=== PATIENT | male | born 1985 | race Caucasian/White ===

== ENCOUNTER 2024-07-06 11:23 | Emergency (ER) | payer OTHER, SELFPAY ==
[2024-07-06 11:39] VITALS: BP 144/73; PULSE 99; RESP 16; TEMP 36.6; O2SAT 97
--- NOTE | 2024-07-06 12:04 | ED.SKABFB ---
HPI - Skin/Abscess/Foreign Bdy General Chief complaint: Skin/Abscess/Foreign Body Stated complaint: Rash on Hands and Legs Time Seen by Provider: 07/06/24 12:04 Source: patient Mode of arrival: ambulatory Limitations: no limitations History of Present Illness HPI narrative: 38-year-old male presented for complaint of an itchy red rash to both hands and both legs. Onset 4 days. Applying cortisone cream and taking daily zyrtec. Denies lip, tongue, or throat swelling, shortness of breath or wheezing. Denies changes to soap, detergent, lotion, meds, or any other exposures. No one else in the house or any contacts with similar symptoms. Related Data Home Medications ?Medication ?Instructions ?Recorded ?Confirmed ?Last Taken ?Type cetirizine 10 mg tablet (Zyrtec) 10 mg PO DAILY PRN 05/04/22 05/04/23 Unknown History Allergies Allergy/AdvReac Type Severity Reaction Status Date / Time latex Allergy Mild Rash Verified 07/06/24 11:58 Review of Systems Review of Systems: CONSTITUTIONAL: Denies body aches, fever, chills, or sweats. EYES: Denies visual changes, redness, or discharge. ENT: Denies rhinorrhea, congestion CARDIOVASCULAR: Denies chest pain, palpitations, or edema. RESPIRATORY: Denies cough or dyspnea. GASTROINTESTINAL: Denies abdominal pain, nausea, vomiting, or diarrhea. SKIN: reports rash MUSCULOSKELETAL: Denies back pain, joint pain, or myalgia. NEUROLOGIC: Denies headache, numbness, tingling, or weakness. [facility] Past Medical History Medical History Hypertriglyceridemia Asthma Hypothyroidism Surgical History Surgical History History of ankle surgery right History of right inguinal hernia repair History of surgery on wrist right History of sinus surgery Social History Social History Smoking status: Never smoker Second hand tobacco smoke exposure: No Alcohol intake: current Substance use: never Substance use type: does not use Lack of Transportation: No Lack of Food: Never True Current Housing: I Have Housing Concerned About Future Housing: No Difficulty Paying Gas/Electric Bills: No Difficulty Paying for Meds: No Currently Unemployed: No Difficulty w/ Childcare or Family Care: No Living arrangements: with family Occupation/Education: occupation Gender identity (if verbalized by the patient): Male Sexual Orientation (if Verbalized by the Patient): Straight or Heterosexual Comments At time of signature, I have reviewed and agree with nursing past medical, surgical, social and family history unless otherwise noted. Please see nursing chart for further information. There is no relevant family history pertinent to the presenting complaint Exam Narrative: GENERAL: Well-appearing ENT: Mucous membranes moist. Oropharynx without edema, erythema or lesions. NECK: Supple. No lymphadenopathy CHEST: Clear to auscultation. HEART: Regular rate and rhythm. SKIN: Warm, dry. Erythematous papules noted to dorsal surface of bilateral hands as well as bilateral lower legs and right ear. No vesicles, no induration or purulence. NEURO: Alert and oriented x3. Course Course Emergency Course: Patient is aware of diagnosis, understands and agrees to treatment plan. Anticipatory guidance given. Patient agrees to follow-up as directed and is aware of reasons to seek care at the emergency department. Portions of this record may have been created with voice recognition software Level of Care: Express Care Visit Vital Signs Vital signs: Vital Signs Temperature 97.8 F 07/06/24 11:39 Pulse Rate 99 07/06/24 11:39 Respiratory Rate 16 07/06/24 11:39 Blood Pressure 144/73 H 07/06/24 11:39 Pulse Oximetry 97 07/06/24 11:39 Temperature 97.8 F 07/06/24 11:39 Pulse Rate 99 07/06/24 11:39 Respiratory Rate 16 07/06/24 11:39 Blood Pressure 144/73 H 07/06/24 11:39 Pulse Oximetry 97 07/06/24 11:39 Reviewed MDM - Skin/Abscess/Foreign Bdy MDM Narrative Medical decision making narrative: Discussed physical exam findings. Advised supportive measures and signs/symptoms to go to the ER. Pt is appropriate for outpt treatment and f/u. Instructed patient to go to nearest ER immediately for any worsening symptoms including but not limited to: fever, spreading rash, pain, sore throat, headache, dizziness, chest pain, trouble breathing, or any symptoms concerning to the patient. Differential Diagnosis Differential diagnosis: Likely abscess of skin or subcutaneous tissue, urticaria, herpes zoster, cellulitis and contact dermatitis Discharge Plan Discharge Clinical Impression: Dermatitis Patient Disposition: Home, Self-Care Condition: Stable Instructions: Antibiotic Form, Dermatitis (ED) Additional Instructions: Take steroids and Pepcid as directed. Benadryl or Zyrtec as needed for itching Cool compresses to the sites of itching, avoid hot water. Avoid scratching to reduce the risk of infection Follow up with your primary care provider as needed in 1 week Go to the ER for worsening symptoms or concerns (lip, tongue, throat swelling/itching, trouble breathing etc) Patient Language: Arabic Prescriptions: New famotidine [Pepcid] 40 mg tablet 40 mg PO DAILY Qty: 10 0RF methylprednisolone [Medrol (Stan)] 4 mg tablets,dose pack See Rx Instructions .ROUTE .COMPLEX Qty: 21 0RF Rx Instructions: orally per package directions No Action cetirizine [Zyrtec] 10 mg tablet 10 mg PO DAILY PRN levothyroxine 50 mcg capsule 50 mcg PO DAILY Qty: 90 3RF fluticasone propion-salmeterol [Advair Diskus] 250-50 mcg/dose blister with device 1 inh inhalation BID Qty: 180 3RF fenofibrate nanocrystallized 145 mg tablet 145 mg PO DAILY Qty: 30 0RF albuterol sulfate 90 mcg/actuation HFA aerosol inhaler See Rx Instructions .ROUTE .COMPLEX Qty: 6.7 2RF Dose Instruction: INHALE 1 PUFF BY MOUTH EVERY 4 HOURS NEEDED FOR SHORTNESS OF BREATH OR WHEEZING Rx Instructions: INHALE 1 PUFF BY MOUTH EVERY 4 HOURS NEEDED FOR SHORTNESS OF BREATH OR WHEEZING levothyroxine 50 mcg tablet 50 mcg PO DAILY Qty: 90 0RF Rx Instructions: Per [employer] ([employer]) PharmDestiney Beltran pt has been receiving tablet never given capsules Follow-up/Referrals: Paola Wright PA-C [Primary Care Provider] - Time of Disposition: 12:13
--- OUTSIDE RECORDS SUMMARY | 2024-07-13 09:12 | XMS_ITS ---
Author Organization [facility] Address [address] [place] [address] Care Team Providers Care Template Layout Worker Name Role Phone Kyle, Sarah Primary Care Provider Unavailab le [place] Cheema Unavailable [phone] ZZ-Migration, Provider Unavailable Unavailab le REASON FOR VISIT [facility] Conversion Encounter Medications Medication SIG (Take, Route, Frequency, Duration) Notes Start Date End Date Status PROVENTIL (ALBUTEROL) HFA 90 MCG/INH 2 PUFF(S) INHALED EVERY 6 HOURS *Please review for potential replacement for e-prescription and drug interaction check* Active Flonase Allergy Relief 50 MCG/ACT 2 spray(s) intranasally (avoid nasal septum) bid Active methylPREDNISolone 4 MG as directed oral ly Qday for 6 days 08/14/2022 Active ZyrTEC Allergy 10 MG 1 tab(s) orally once a day Active Levothyroxine Sodium 50 MCG 1 tab(s) orally once a day for 30 day(s) Active Advair Diskus 250 MCG-50 MCG 1 INH INHALED QDAY *Please review and pick correct strength-formulat ion from [facility] options. 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 ; Moderate persistent asthma, uncomplicated J45.40 and Allergic rhinitis due to animal (cat) (dog) hair and dander J30.81 Assessments Encounter Date Diagnosis (ICD Code) Assessment Notes Treatment Notes Treatment Clinical Notes Section Notes 12/22/2023 Polyp of nasal cavity (ICD-10 - J33.0) 12/22/2023 Moderate persistent asthma, uncomplicated (ICD-10 - J45.40) 12/22/2023 Allergic rhinitis due to animal (cat) (dog) hair and dander (ICD-10 - J30.81) Plan Of Treatment Medication Medication Name Sig Start Date Stop Date Notes PROVENTIL (ALBUTEROL) HFA 90 MCG/INH 2 PUFF(S) INHALED EVERY 6 HOURS *Please review for potential replacement for e-prescription and drug interaction check* Flonase Allergy Relief 50 MCG/ACT 2 spray(s) intranasally (avoid nasal septum) bid methylPREDNISolone 4 MG as directed oral ly Qday for 6 days 08/14/2022 Advair Diskus 250 MCG-50 MCG 1 INH INHALED QDAY *Please revie w and pick correct strength-formulati on from [facility] [employer] options. If intended option is not shown, discontinue and re-order from Quick Search* Cetirizine HCl 10 MG 1 tab(s) orally onc e a day 08/14/2022 Progress Notes * Nick VASQUEZDOB:1985 (38 yo M)Acc No.[id number]:12/22/2023 Patient:?Nick VASQUEZ Provider:?Provider Migration :1985???Age:38 Y???Sex:Male Boris e:12/22/2023 Address:[address] [place] [address] [id number] Pcp:Rowena Wright Subjective: * Chief Complaints: * ???1. [facility] Con version Encounter. * Medical History:? * Medications:?Taking ZyrTEC A llergy 10 MG Tablet 1 tab(s) orally once a day , Taking Levothyroxine Sodium 50 MCG Tablet 1 tab(s) orally once a day Objective: * Vitals:? Assessment: * Assessment: 1.?Moderate persistent asthm a, uncomplicated - J45.40 (Primary)???2.?Polyp of nasal cavity - J33.0???3.?Allergic rhinitis due to animal (cat) (dog) hair and dander - J30.81??? Plan: * Treatment: 2.?Polyp of nasal cavity? Continue Flonase Allergy Relief Suspension, 50 MCG/ACT, 2 spray(s), intranasally (avoid nasal septum), bid;?Start methylPREDNISolone Tablet Therapy Pack, 4 MG, as directed, orally, Qday, 6 days, 1, Refills 0.?? 3.?Allergic rhinitis due to animal (cat) (dog) hair and dander? Continue Cetirizine HCl Tablet, 10 MG, 1 tab(s), orally, once a day.?? * Billing Information: * Visit Code:? * Procedure Codes:? * Electronic signature of Mikey RODRIGUEZ-Migration on 07/13/2024 at 09:11 AM [employer] Sign off status: Pending * Provider:?Provider Migration Date:?12/21 Generated for Terri barth/David/Bharat on:?07/13/2024 09:11 AM [employer]
--- OUTSIDE RECORDS SUMMARY | 2024-07-13 09:12 | XMS_ITS | Patient Health Record ---
Author Organization [facility] Address [address] [place] [address] Care Team Providers Care Remediation Project Engineer Name Role Phone Kyle, Sarah Primary Care Provider Unavailab le [place] Cheema Unavailable [phone] ZZ-Migration, Provider Unavailable Unavailab le Allergies No Known Allergies Reason For Referral No Information Medications Medication SIG (Take, Route, Frequency, Duration) Notes Start Date End Date Status ADVAIR DISKUS 250 mcg-50 mcg 1 INH inhaled Qday Active ZYRTEC 10 mg 1 tab(s) orally once a day Active ZyrTEC Allergy 10 MG 1 tab(s) orally once a day Active Levothyroxine Sodium 50 MCG 1 tab(s) orally once a day for 30 day(s) Active Advair Diskus 250 MCG-50 MCG 1 INH INHALED QDAY *Please review and pick correct strength-formulat ion from [email or web address] options. If intended option is not shown, discontinue and re-order from Quick Search* Active PROVENTIL (ALBUTEROL) HFA 90 MCG/INH 2 PUFF(S) INHALED EVERY 6 HOURS *Please review for potential replacement for e-prescription and drug interaction check* Active Flonase Allergy Relief 50 MCG/ACT 2 spray(s) intranasally (avoid nasal septum) bid Active LEVOTHYROXINE 50 mcg (0.05 mg) 1 tab(s) orally once a day for 30 day(s) Active methylPREDNISolone 4 MG as directed oral ly Qday for 6 days 08/14/2022 Active FLONASE 0.05 mg/inh 2 spray(s) intranasally (avoid nasal septum) bid Active Cetirizine HCl 10 MG 1 tab(s) orally once a day 08/14/2022 Active METHYLPREDNISOLONE DOSE PACK 4 mg as directed orally Qday for 6 days 08/14/2022 Active CETIRIZINE HYDROCHLORIDE 10 mg 1 tab(s) orally once a day 08/14/2022 Active Immunizations Vaccine Route Administration Date Status Comme nts DTaP < 7 y/o Unknown 01/08/2017 Administered Portal Inf ormation Flucelvax Unknown 04/21/2022 Administered Influenza Unknown 04/17/2022 Administered Portal Infor mation Problems Problem Type SNOMED Code ICD Code Onset Dates Problem Status W/U Status Risk Notes Problem Hypothyroidism (77313696) Hypothyroidism, unspecified (E03.9) Active confirmed Problem Chronic allergic conjunctivitis (25798912) Other chronic allergic conjunctivitis (H10.45) Active confirmed Problem Allergic rhinitis caused by pollen (disorder) (02289634) Allergic rhinitis due to pollen (J30.1) Active confirmed Problem Allergic rhinitis (20578044) Other allergic rhinitis (J30.89) Active confirmed Problem Chronic rhinitis (93875766) Chronic rhinitis (J31.0) Active confirmed Problem Polyp of nasal cavity (450537799) Polyp of nasal cavity (J33.0) Active confirmed Problem Uncomplicated mild persistent asthma (792252608) Mild persistent asthma, uncomplicated (J45.30) Active confirmed Problem Uncomplicated moderate persistent asthma (227692160) Moderate persistent asthma, uncomplicated (J45.40) Active confirmed Problem Uncomplicated severe persistent asthma (425027058) Severe persistent asthma, uncomplicated (J45.50) Active confirmed Problem Allergic rhinitis caused by animal hair and dander (068292068353890) Allergic rhinitis due to animal (cat) (dog) hair and dander (J30.81) Active confirmed Encounters Encounter Location Date Provider Diagnosis [facility] [address] [place] [id number] 12/22/2023 Provider Vanessa Polyp of nasal cavity J33.0 ; Moderate [...] dander (ICD-10 - J30.81) Plan Of Treatment No Information Insurance Providers Payer Name Payer Address Payer Phone Subscriber Number Group Number Insured Name Patient Relationship to Insured Coverage Start Date Coverage End Date [facility] [address] [place] [address] [id number] Nick Cotton Self - patient is the insured Medical (General) History Medical History History ICD Code Hypothyroidism, unspecified E03.9 Surgical History Surgery Date(Month/Year) Broken R Wrist 11/29/2001 R Ankle Ligament Repair 04/15/2004 Sinus Surgery 09/25/2016 Inguinal Hernia 08/18/2020
== END 2024-07-06 12:14 | disposition home or self-care (01) ==
PROVIDERS: Emergency Provider Nurse Practitioner Family; PCP Physician Assistant Medical
DX: L30.9 Dermatitis, unspecified (principal); J45.909 Unspecified asthma, uncomplicated; E03.9 Hypothyroidism, unspecified; E78.1 Pure hyperglyceridemia
CPT/HCPCS: 99213; G0463

== ENCOUNTER 2024-10-03 08:12 | Emergency (ER) | payer OTHER, SELFPAY ==
--- NOTE | 2024-10-03 08:13 | ED_ITS ---
HPI - URI/Sore Throat General Chief Complaint: Upper Respiratory Infection Stated Complaint: sore throat Time Seen by Provider: 10/03/24 08:13 Source: patient Mode of arrival: ambulatory Limitations: no limitations History of Present Illness HPI Narrative: Nick is a 38-year-old male patient presenting to the clinic today with complaints of sore throat x4 days. He reports some nasal drainage going up back with so feeling worn down but no other URI symptoms. Denies any fever. 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 MD elicited complaint: sore throat Related Data Home Medications ?Medication ?Instructions ?Recorded ?Confirmed ?Last Taken ?Type cetirizine 10 mg tablet (Zyrtec) 10 mg PO DAILY PRN 05/04/22 08/25/24 Unknown History Allergies Allergy/AdvReac Type Severity Reaction Status Date / Time latex Allergy Mild Rash Verified 10/03/24 08:23 Review of Systems Review of Systems: Pertinent positives per HPI. Patient denies any fever, chills, rash, headache, visual changes, dizziness, cough, shortness of breath, chest pain, palpitations, nausea, vomiting, diarrhea, constipation, abdominal pain, or any urinary issues. [facility] Past Medical History Medical History Hypertriglyceridemia Asthma Hypothyroidism Surgical History Surgical History History of ankle surgery right History of right inguinal hernia repair History of surgery on wrist right History of sinus surgery Social History Social History Social History: 08/18/24 Very confident with medical forms Smoking status: Never smoker Second hand tobacco smoke exposure: No Alcohol intake: current Substance use: never Substance use type: does not use Do You Feel Safe in your Home?: Yes Lack of Transportation: No Lack of Food: Never True Current Housing: I Have Housing Concerned About Future Housing: No Difficulty Paying Gas/Electric Bills: No Difficulty Paying for Meds: No Currently Unemployed: No Education: Bachelor's Degree Difficulty w/ Childcare or Family Care: No Living arrangements: with family Occupation/Education: occupation Gender identity (if verbalized by the patient): Male Sexual Orientation (if Verbalized by the Patient): Straight or Heterosexual Comments At the time of my signature, I reviewed and agree with the nursing past medical, surgical, social, and family history. There is no relevant family history pertinent to the patient complaint. Exam Narrative: General: Well-developed, well nourished, in no apparent distress Head: Normocephalic, atraumatic Eyes: Pupils equally round and reactive to light bilaterally, EOM intact, sclera and conjunctive clear, no discharge, lids normal Ears: TMs intact and clear, ear canals clear, no drainage, grossly hearing normal. Nose: Nares patent, no discharge, no inflammation, no sinus tenderness. Mouth: Oral pharynx red without lesions or masses, good dentition, MMM. Neck: Supple, trachea midline, no enlargement of anterior or posterior cervical nodes, no thyroid masses or goiter palpable. Cardio: Regular rate and rhythm, s1 and s2 normal, no murmur appreciated. Resp: Clear to auscultation bilaterally, no rhonchi, rales, wheezing or rubs Course Course Emergency Course: Portions of this record may have been created with voice recognition software. Level of Care: Express Care Visit Vital Signs Vital signs: Vital signs reviewed MDM - URI/Sore Throat MDM Narrative Medical decision making narrative: At the time of visit patient is resting comfortably on the exam table. Patient appears to be nontoxic. Labs: COVID testing was negative. Strep test was positive Plan: Patient has strep pharyngitis. Prescription for amoxicillin was sent to the pharmacy. Supportive measures were discussed with the patient and they voiced understanding discharge instructions and agrees to treatment plan. Return precautions reviewed Differential Diagnosis Differential diagnosis: Likely upper respiratory infection, otitis media, sinusitis, viral infection, bronchitis, influenza, pharyngitis and other (COVID) Discharge Plan Discharge Clinical Impression: Acute streptococcal pharyngitis Patient Disposition: Home, Self-Care Condition: Stable Instructions: Antibiotic Form, Strep Throat (ED) Additional Instructions: Take prescription medications only as prescribed-amoxicillin COVID testing was negative. Strep test was positive. Change your toothbrush in 24 hours after initiation of the antibiotics Increase fluids and stay well hydrated Tylenol/motrin for pain/fever Flonase and OTC antihistamines as directed Vicks vapor rub to open sinuses Sinus rinses for congestion Cepacol spray, cough drops, throat lozenges, warm tea with honey/lemon, gargle salt water to soothe throat BRAT diet for diarrhea Clear liquids x 24 hours then advance as tolerated for nausea/vomiting Go to the ED if you develop a worsening in your condition- high fever not controlled by Tylenol or Motrin, dehydration, weakness, lethargy, shortness of breath, or chest pain. Follow up with your PCP in 3-5 days if symptoms persist. Patient Language: [place] Citizen Prescriptions: New amoxicillin 875 mg tablet 875 mg PO Q12H 10 Days Qty: 20 0RF No Action famotidine [Pepcid] 40 mg tablet 40 mg PO DAILY Qty: 10 0RF cetirizine [Zyrtec] 10 mg tablet 10 mg PO DAILY PRN fluticasone propion-salmeterol [Advair Diskus] 250-50 mcg/dose blister with device 1 inh inhalation BID Qty: 180 3RF albuterol sulfate 90 mcg/actuation HFA aerosol inhaler See Rx Instructions .ROUTE .COMPLEX Qty: 6.7 2RF Dose Instruction: INHALE 1 PUFF BY MOUTH EVERY 4 HOURS NEEDED FOR SHORTNESS OF BREATH OR WHEEZING Rx Instructions: INHALE 1 PUFF BY MOUTH EVERY 4 HOURS NEEDED FOR SHORTNESS OF BREATH OR WHEEZING levothyroxine 50 mcg tablet 50 mcg PO DAILY Qty: 90 1RF Rx Instructions: Per Fawn Beltran pt has been receiving tablet never given capsules Follow-up/Referrals: Paola Wright PA-C [Primary Care Provider] - Stand Alone Forms: Work/School Release IP Time of Disposition: 08:47 Quality NIHSS Nursing Documentation ED NIHSS nursing documentation: reviewed/agree
--- OUTSIDE RECORDS SUMMARY | 2024-10-03 08:18 | XMS_ITS | Clinical Summary ---
Author Organization [facility] Address [facility] [place] [address] Care Team Providers Care Analytics Associate Name Role Phone Paola Wright PA-C Primary Care Provider [phone] Social History Tobacco Use Types Packs/Day Years Used Date Smoking Tobacco: Never Assessed Sex and Gender Information Value Date Recorded Sex Assigned at Not on file Legal Sex Male 3:05 PM CDT Gender Identity Not on file Sexual Orientation Not on file Plan of Treatment Health Maintenance Due Date Last Done Comments Annual Physical 10/05/1986 Hepatitis C 10/05/2001 DTaP, Tdap and Td Vaccines (1 - Tdap) 10/05/2002 Hepatitis B Vaccines (1 of 3 - 19+ 3-dose series) 10/05/2002 COVID-19 Vaccine ( season) 2024 05/19/2022, 06/01/2021, 11/13/2020, Additional history exists Influenza Adult (#1) 2024 04/21/2022, 04/19/2022, 04/11/2018 HPV Vaccines Aged Out No longer eligi ble based on patient's age to complete this topic Meningococcal B Vaccine Aged Out No l onger eligible based on patient's age to complete this topic Meningococcal Vaccine Aged Out No zhanna dorys eligible based on patient's age to complete this topic Pneumococcal Vaccine: Pediatrics (0 to 5 Years) and At-Risk Patients (6 to 64 Years) Aged Out No longer eligible based on patient's age to complete this topic RSV Immunizations Under 20 Months Aged Out No longer eligible based on patient's age to complete this topic Insurance Care Teams Analytics Associate Relationship Specialty Start Date End Date Paola Wright PA-C [address] [place], [place] [id number] [place] [address] PCP - General PHYSICIAN COMPONENT OVERHAUL OPERATOR 09/21/22
--- OUTSIDE RECORDS SUMMARY | 2024-10-03 08:18 | XMS_ITS | Clinical Summary ---
Author Organization [facility] [place] [address] [place] [address] Care Team Providers Care Roll On Man Name Role Phone Unavailable Primary Care Provider Unavailabl e Social History Tobacco Use Types Packs/Day Years Used Date Smoking Tobacco: Never Assessed Sex and Gender Information Value Date Recorded Sex Assigned at Not on file Legal Sex Male 8:36 AM PST Gender Identity Not on file Sexual Orientation Not on file Plan of Treatment Not on file
--- OUTSIDE RECORDS SUMMARY | 2024-10-03 08:19 | XMS_ITS ---
Author Organization [facility] Address [address] [place] [address] Care Team Providers Care Health Workers Name Role Phone Kyle, Sarah Primary Care Provider Unavailab le [place] Cheema Unavailable [phone] [employer]-Migration, Provider Unavailable Unavailab le REASON FOR VISIT [facility] Encounter Medications Medication SIG (Take, [...] review and pick correct strength-formulat ion from [facility] options. If intended option is not shown, discontinue and re-order from Quick Search* Active Cetirizine HCl 10 MG 1 tab(s) orally once a day 08/14/2022 Active Encounters Encounter Location Date Provider Diagnosis [facility] [address] [place] [address] 12/22/2023 Provider ZZ-Migration Polyp of nasal cavity [...] w and pick correct strength-formulati on from [employer] options. If intended option is not shown, discontinue and re-order from Quick Search* Cetirizine HCl 10 MG 1 tab(s) orally onc e a day 08/14/2022 Progress Notes * Nick VASQUEZDOB:1985 (38 yo M)Acc No.[id number]:12/22/2023 Patient: Nick JURADO Provider: Vince Lee :1985 A ge:38 Y S ex:Male Date:12/22/2023 Address:[address] [place] [address] [id number] Pcp:Rowena Wright Subjective: * Chief Complaints: * 1 . [facility] Encounter. * Medical History: * Medications: T aking ZyrTEC Allergy 10 MG Tablet 1 tab(s) orally once a day , Taking Levothyroxine Sodium 50 MCG Tablet 1 tab(s) orally once a day Objective: * Vitals: Assessment: * Assessment: 1. M oderate persistent asthma, uncomplicated - J45.40 (Primary) 2 . 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 A llergic rhinitis due to animal (cat) (dog) hair and dander - J30.81 Plan: * Treatment: 2. P olyp of nasal cavity Continue Flonase Allergy Relief Suspension, 50 MCG/ACT, 2 spray(s), intranasally (avoid nasal septum), bid; S tart methylPREDNISolone Tablet Therapy Pack, 4 MG, as directed, orally, Qday, 6 days, 1, Refills 0. 3. A llergic rhinitis due to animal (cat) (dog) hair and dander Continue Cetirizine HCl Tablet, 10 MG, 1 tab(s), orally, once a day. * Billing Information: * Visit Code: * Procedure Codes: * Electronic signature of Mikey RODRIGUEZ-Migration on 10/03/2024 at 08:18 AM CDT Sign off status: Pending * Provider: Vince tobin Migration Date: 0 12/22/2023 Generated for Terri barth/David/Bharat on: 0 10/03/2024 08:18 AM CDT
--- OUTSIDE RECORDS SUMMARY | 2024-10-03 08:19 | XMS_ITS | Clinical Summary ---
Author Organization [facility] Address [address] [place] [address] Care Team Providers Care Data Processing Specialist Name Role Phone Unavailable Primary Care Provider Unavailabl e Source Comments [facility] My Ad Box,non-owned Affiliates and Associated Physician Practices is amultiple site organization consisting of ambulatory clinics and hospital sitesin [place], [place], [place] and [place]. This disclosure is being madepursuant to the Care Everywhere program and may not contain all information available regarding this patient. Last updated 18.[facility] My [facility] Social History Tobacco Use Types Packs/Day Years Used Date Smoking Tobacco: Never Alcohol Use Standard Drinks/Week Comments No 0 (1 standard drink = 0.6 oz pur e alcohol) Sex and Gender Information Value Date Recorded Sex Assigned at Not on file Gender Identity Not on file Sexual Orientation Not on file Last Filed Vital Signs Vital Sign Reading Time Taken Comments Blood Pressure 127/83 10/05/2013 6:21 PM CDT Pulse 116 10/05/2013 6:00 PM CDT Temperature 36.3 C (97.4 F) 10/05/2013 4:14 PM CDT Respiratory Rate 27 10/05/2013 6:00 PM CDT Oxygen Saturation 96% 10/05/2013 6:00 PM CDT Inhaled Oxygen Concentration - - Weight - - Height - - Body Mass Index - - Plan of Treatment Health Maintenance Due Date Last Done Comments LIPID TESTING 1985 HIV SCREENING 10/05/1998 HEPATITIS C SCREENING 10/01/2001 DTAP/TDAP/TD VACCINES (1 - Tdap) 10/05/2002 HEPATITIS B VACCINE (1 of 3 - 19+ 3-dose series) 10/05/2002 COVID-19 VACCINE ( - 2023-2 5 season) 2024 INFLUENZA VACCINE (#1) 2024 DEPRESSION SCREENING 07/09/2024 ZOSTER VACCINE (1 of 2) 10/05/2033 HIB VACCINE Aged Out No longer eligi ble based on patient's age to complete this topic HPV VACCINE Aged Out No longer eligi ble based on patient's age to complete this topic MENINGOCOCCAL (Group B) VACC INE SHARED DECISION-MAKING Aged Out No longer eligibl e based on patient's age to complete this topic MENINGOCOCCAL GROUPS A/C/Y/W VACCINE Aged Out No longer eligible b ased on patient's age to complete this topic PNEUMOCOCCAL VACCINE Aged Out No long er eligible based on patient's age to complete this topic
--- OUTSIDE RECORDS SUMMARY | 2024-10-03 08:19 | XMS_ITS | Encounter Summary ---
Author Organization [facility] [place] [address] [place] [address] Care Team Providers Care Spares Scheduler Name Role Phone Unavailable Primary Care Provider Unavailabl e Prior Encounters Date Type Department Care Team Description 07/28/2019 Converted 13x Documents [facility] [address] , [address] [place] [phone] <No scans attached> 07/28/2019 Converted CPS Chart Documents [facility] [address] , [facility] [address] [place] [address] <No scans attached> Plan of Treatment Not on file Procedures Procedure Name Priority Date/Time Associated Diagnosis Comments OFFICE VISIT FOR OBSERVATION (DURING REGULARLY SCHEDULED HOURS) - NO OTHER SERVICES PERFORMED Routine 03/13/2013 1:00 AM MDT OCCLUSAL GUARD DELIVERY Routine 01/04/20 13 1:00 AM MDT ORAL HYGIENE INSTRUCTIONS Routine 2012 1:00 AM MDT 1 FM IRR W/GROSS SCALE Routine 3 1:00 AM MDT TOPICAL APPLICATION OF FLUORIDE VARNISH Routine 12/27/2012 1:00 AM MDT PROPHYLAXIS - ADULT Routine 12/27/2012 1 :00 AM MDT OCCLUSAL GUARD SOFT APPLIANCE, FULL ARCH Routine 12/24/2012 1:00 AM MDT COMPREHENSIVE ORAL EVALUATION - NEW OR ESTABLISHED PATIENT Routine 12/24/2012 1:00 AM MDT PANORAMIC RADIOGRAPHIC IMAGE Routine 12/24/2012 1:00 AM MDT INTRAORAL - COMPREHENSIVE SERIES OF RADIOGRAPHIC IMAGES Routine 12/24/2012 1:00 AM MDT INTRAORAL PHOTO Routine 12/24/2012 1:00 AM MDT INTRAORAL PHOTO Routine 12/24/2012 1:00 AM MDT INTRAORAL PHOTO Routine 12/24/2012 1:00 AM MDT INTRAORAL PHOTO Routine 12/24/2012 1:00 AM MDT INTRAORAL PHOTO Routine 12/24/2012 1:00 AM MDT INTRAORAL PHOTO Routine 12/24/2012 1:00 AM MDT INTRAORAL PHOTO Routine 12/24/2012 1:00 AM MDT INTRAORAL PHOTO Routine 12/24/2012 1:00 AM MDT INTRAORAL PHOTO Routine 12/24/2012 1:00 AM MDT INTRAORAL PHOTO Routine 12/24/2012 1:00 AM MDT 30 MOD COMPOSITE FILLING Routine 013 1:00 AM MDT 31 MO COMPOSITE FILLING Routine 12/25/19 13 1:00 AM MDT 29 DO COMPOSITE FILLING Routine 12/25/19 13 1:00 AM MDT Visit Diagnoses Not on file
[2024-10-03 08:22] VITALS: BP 128/82; PULSE 99; RESP 16; TEMP 36.4; O2SAT 99
--- OUTSIDE RECORDS SUMMARY | 2024-10-03 08:22 | XMS_ITS | Patient Health Record ---
Author Organization [facility] Address [address] [place] [address] Care Team Providers Care Resource Conservationist Name Role Phone Kyle, Sarah Primary Care Provider Unavailab le [place] Cheema Unavailable [phone] [employer]-M[employer], Provider Unavailable Unavailab le Allergies No [...] review and pick correct strength-formulat ion from [employer] options. If intended option is not shown, [...] Status W/U Status Risk Notes Problem Hypothyroidism (12787955) Hypothyroidism, unspecified (E03.9) Active confirmed Problem Chronic allergic conjunctivitis (78444305) Other chronic allergic conjunctivitis (H10.45) Active confirmed Problem Allergic rhinitis caused by pollen (disorder) (34776132) Allergic rhinitis due to pollen (J30.1) Active confirmed Problem Allergic rhinitis (43797321) Other allergic rhinitis (J30.89) Active confirmed Problem Chronic rhinitis (70593103) Chronic rhinitis (J31.0) Active confirmed Problem Polyp of nasal cavity (120828420) Polyp of nasal cavity (J33.0) Active confirmed Problem Uncomplicated mild persistent asthma (192878597) Mild persistent asthma, uncomplicated (J45.30) Active confirmed Problem Uncomplicated moderate persistent asthma (207353905) Moderate persistent asthma, uncomplicated (J45.40) Active confirmed Problem Uncomplicated severe persistent asthma (635297974) Severe persistent asthma, uncomplicated (J45.50) Active confirmed Problem Allergic rhinitis caused by animal hair and dander (454504539725165) Allergic rhinitis due to animal (cat) (dog) hair and dander (J30.81) Active confirmed Encounters Encounter Location Date Provider Diagnosis [facility] [address] [place] [phone] 12/22/2023 Provider Vanessa Polyp of nasal cavity [...] Insured Coverage Start Date Coverage End Date [facility] [id number] [place] [address] [phone] [id number] Nick Cotton Self - patient is the insured Medical (General) History Medical History History ICD Code Hypothyroidism, unspecified E03.9 Surgical History Surgery Date(Month/Year) Broken R Wrist 11/29/2001 R Ankle Ligament Repair 04/15/2004 Sinus Surgery 09/25/2016 Inguinal Hernia 08/18/2020
[2024-10-03 08:42] LABS: EDSTREPNEGPOS1 Positive (Negative)
[2024-10-03 08:50] LABS: EDCOVIDSCREEN Negative (Negative)
== END 2024-10-03 08:51 | disposition home or self-care (01) ==
PROVIDERS: Emergency Provider Nurse Practitioner Family; PCP Physician Assistant Medical
DX: J02.0 Streptococcal pharyngitis (principal); Z20.822 Contact with and (suspected) exposure to COVID-19; J45.909 Unspecified asthma, uncomplicated; E03.9 Hypothyroidism, unspecified; E78.1 Pure hyperglyceridemia
CPT/HCPCS: 87426; 87880; 99213; G0463